=== PATIENT | female | born 1955 ===

== ENCOUNTER 2022-10-24 07:30 | Day surgery (SDC) | payer MEDICARE ==
[2022-10-24] MEDS ORDERED: Dextrose 5%-Lactated Ringers 1,000 ML IV SCH (08:00)
[2022-10-24] MEDS ORDERED: Glycopyrrolate 0.2 MG/ML 2 ML SDV IVPUSH ONE (08:30)
[2022-10-24] MEDS ORDERED: Midazolam 1 MG/ML 2 ML SDV ONE (10:00)
[2022-10-24] MEDS ORDERED: Propofol 200 MG/20 ML SDV ONE (10:00)
[2022-10-24] MEDS ORDERED: fentaNYL 50 MCG/ML SDV ONE (10:00)
== END 2022-10-24 11:15 | disposition home or self-care (01) ==
LOC: JP.SDS 07:30
PROVIDERS: ATTEND Surgery
DX: K44.9 Diaphragmatic hernia without obstruction or gangrene (principal); K21.9 Gastro-esophageal reflux disease without esophagitis; E78.5 Hyperlipidemia, unspecified; E66.9 Obesity, unspecified; Z68.44 Body mass index [BMI] 60.0-69.9, adult; Z87.19 Personal history of other diseases of the digestive system; Z88.0 Allergy status to penicillin; Z88.2 Allergy status to sulfonamides; Z88.7 Allergy status to serum and vaccine
CPT/HCPCS: 43239; 87081; 88305; J2250; J2704; J3010; J3490; J7121